=== PATIENT | female | born 1980 | race Two or more races ===

== ENCOUNTER 2021-04-17 07:02 | Day surgery (SDC) | payer OTHER ==
[~2021-04-17 07:02] MED LIST: FAMOTID PO; METOCLOPRAMIDE10 MG PO; PRILOSEC OTC20 MG PO; ZOFRAN8 MG PO
[2021-04-17] MEDS ORDERED: PERCOCET 5-3251 EACH PO (08:57)
== END 2021-04-17 11:00 | disposition home or self-care (01) ==
LOC: CIR.AMB 07:02 → EDBD 10:15 → CIR.AMB 10:15
PROVIDERS: ATTEND Surgery
DX: C20 Malignant neoplasm of rectum (principal); Z20.822 Contact with and (suspected) exposure to COVID-19
CPT/HCPCS: 36561; C1751

== ENCOUNTER 2021-10-14 11:30 | Inpatient (IN) | payer OTHER ==
[~2021-10-14] VITALS: Ht 160 cm; Wt 54.4 kg
[~2021-10-14 11:30] MED LIST changes: +PERCOCET 5-3251 EACH PO
[2021-10-20] MEDS ORDERED: OMEPRAZOLE20 MG (16:32)
[2021-10-20] MEDS ORDERED: FAMOTIDINE40 MG (16:32)
[2021-10-23] MEDS ORDERED: IMODIUM A-D2 M2 PO (11:29)
[2021-10-23] MEDS ORDERED: PERCOCET 5-3251 EACH PO (11:29)
== END 2021-10-23 14:24 | disposition home or self-care (01) | DRG 330 ==
LOC: SURH 10-20 06:00 → O/R 10-20 06:00 → SURH 10-20 11:26
PROVIDERS: ADMIT Surgery; ATTEND Surgery
PROC: 0DTP4ZZ Resection of Rectum, Percutaneous Endoscopic Approach (ICD-10-PCS; 2021-10-20)
PROC: 07BC4ZZ Excision of Pelvis Lymphatic, Percutaneous Endoscopic Approach (ICD-10-PCS; 2021-10-20)
PROC: 0D1B4Z4 Bypass Ileum to Cutaneous, Percutaneous Endoscopic Approach (ICD-10-PCS; 2021-10-20)
PROC: 8E0ZXY6 Isolation (ICD-10-PCS; 2021-10-20)
PROC: 3E0F7SF Introduction of Other Gas into Respiratory Tract, Via Natural or Artificial Opening (ICD-10-PCS; 2021-10-20)
PROC: 0DTN4ZZ Resection of Sigmoid Colon, Percutaneous Endoscopic Approach (ICD-10-PCS; principal; 2021-10-20 13:30)
DX: C20 Malignant neoplasm of rectum (principal); K62.5 Hemorrhage of anus and rectum; R59.0 Localized enlarged lymph nodes; K62.89 Other specified diseases of anus and rectum

== ENCOUNTER 2022-03-22 15:01 | Inpatient (IN) | payer OTHER ==
[~2022-03-22] VITALS: Ht 160 cm; Wt 54.0 kg
[~2022-03-22 15:01] MED LIST changes: +FAMOTIDINE40 MG; +IMODIUM A-D2 M2 PO; +OMEPRAZOLE20 MG
[2022-03-26] MEDS ORDERED: CHOLESTYRAMINE L4 GM (10:32)
[2022-03-26] MEDS ORDERED: OMEPRAZOLE20 MG (10:32)
[2022-03-26] MEDS ORDERED: FAMOTIDINE40 MG (10:33)
== END 2022-03-29 14:12 | disposition home or self-care (01) | DRG 348 ==
LOC: O/R 03-26 06:00 → SURH 03-26 07:00 → SURG 03-26 13:34
PROVIDERS: ADMIT Surgery; ATTEND Surgery
PROC: 0DBB4ZZ Excision of Ileum, Percutaneous Endoscopic Approach (ICD-10-PCS; principal; 2022-03-26 09:15)
DX: Z43.2 Encounter for attention to ileostomy (principal); C20 Malignant neoplasm of rectum; K62.5 Hemorrhage of anus and rectum; D84.9 Immunodeficiency, unspecified; D62 Acute posthemorrhagic anemia; R59.0 Localized enlarged lymph nodes; Z92.21 Personal history of antineoplastic chemotherapy; Z20.822 Contact with and (suspected) exposure to COVID-19

== ENCOUNTER 2023-09-30 06:05 | Day surgery (SDC) | payer OTHER ==
[~2023-09-30 06:05] MED LIST changes: +CHOLESTYRAMINE L4 GM
[2023-09-30] MEDS ORDERED: CEFAZOLIN SODIUM 1,000 MG VIAL ONE (09:06)
[2023-09-30] MEDS ORDERED: BUPIVACAINE HCL/PF 0.25% 30ML VIAL InF ONE ×2 (09:22→09:45)
[2023-09-30] MEDS ORDERED: LIDOCAINE HCL/EPINEPHRINE 1% 50ML VIAL IJ ONE ×2 (09:22→09:45)
[2023-09-30] MEDS ORDERED: CEFAZOLIN SODIUM 1,000 MG VIAL IV ONE (09:45)
[2023-09-30] MEDS ORDERED: TRAM1TAB98 PO (09:58)
== END 2023-09-30 12:00 | disposition home or self-care (01) ==
LOC: CIR.AMB 06:05
PROVIDERS: ATTEND Surgery
DX: C20 Malignant neoplasm of rectum (principal); I10 Essential (primary) hypertension